=== PATIENT | female | born 1995 | race Caucasian/White ===

== ENCOUNTER 2019-04-19 02:12 | Emergency (ER) | payer OTHER ==
--- NOTE | 2019-04-19 02:23 | ED Physician Documentation ---
PD HPI ABD PAIN - Stated complaint Stated Complaint: ABD PX - Chief complaint Chief Complaint: Abd Pain - History obtained from History obtained from: Patient - History of Present Illness Timing - onset: Today (tonight) Timing - details: Abrupt onset Pain level now: 8 Quality: Cramping, Pain Location: Suprapubic Improved by: Other (sitting in a hot bath) Worsened by: Position, Palpation Associated symptoms: Nausea, Vomiting. No: Fever, Diarrhea, Constipation Similar symptoms before: Has not had sx before Recently seen: Not recently seen - Additional information Additional information: moved to [facility] last month. c/o severe period cramps, excessive bleeding (vaginal bleeding). symptoms started tonight. Review of Systems Constitutional: reports: Reviewed and negative Cardiac: reports: Reviewed and negative Respiratory: reports: Reviewed and negative GI: reports: Abdominal Pain, Nausea, Vomiting : reports: Vaginal bleeding. denies: Dysuria, Frequency, Now EGA PD PAST MEDICAL HISTORY - Past Medical History Past Medical History: No - Past Surgical History Past Surgical History: Yes - Present Medications Home Medications: Ambulatory Orders Medication Instructions Recorded Confirmed Ketorolac [Toradol] 10 mg PO Q6H PRN #14 tablet 04/19/19 Ondansetron Odt [Zofran] 4 mg TL Q6H PRN #10 tablet 04/19/19 - Allergies Allergies/Adverse Reactions: Allergies Allergy/AdvReac Type Severity Reaction Status Date / Time No Known Drug Allergies Allergy Verified 04/19/19 02:17 - Social History Does the pt smoke?: Yes Smoking Status: Current every day smoker Does the pt drink ETOH?: Yes Does the pt have substance abuse?: No - Immunizations Immunizations are current?: Yes - POLST Patient has POLST: No PD ED PE NORMAL - Vitals Vital signs reviewed: Yes - General General: Alert and oriented X 3, Well developed/nourished, Other (appears uncomfortable due to pain) - Cardiac Cardiac: RRR, No murmur - Respiratory Respiratory: No respiratory distress, Clear bilaterally - Abdomen Abdomen: Soft, Non tender, Non distended - Derm Derm: Normal color, Warm and dry Results - Vitals Vitals: Oxygen O2 Source Room air - Labs Labs: Laboratory Tests 04/19/19 04/19/19 03:15 03:15 WBC 5.5 RBC 4.41 Hgb 13.8 Hct 40.4 MCV 91.6 MCH 31.3 H MCHC 34.2 RDW 13.0 Plt Count 215 MPV 10.5 Neut # (Auto) 2.2 Lymph # (Auto) 2.4 Morris # (Auto) 0.3 Eos # (Auto) 0.5 Baso # (Auto) 0.1 Absolute Nucleated RBC 0.00 Nucleated RBC % 0.0 Sodium 144 Potassium 3.6 Chloride 109 Carbon Dioxide 25 Anion Gap 10.0 BUN 10 Creatinine 1.0 Estimated GFR (MDRD) 68 L Glucose 89 Calcium 8.4 L PD MEDICAL DECISION MAKING - ED course Complexity details: reviewed results, re-evaluated patient, considered differential, d/w patient ED course: asleep on reevaluations, reported improvement after IV zofran and Toradol. Departure - Departure Disposition: 01 Home, Self Care Clinical Impression: Pelvic pain Condition: Good Instructions: ED Pelvic Pain [facility] Follow-Up: [facility] [Provider Group] Prescriptions: Ketorolac [Toradol] 10 mg PO Q6H PRN #14 tablet PRN Reason: Pain Ondansetron Odt [Zofran] 4 mg TL Q6H PRN #10 tablet PRN Reason: Nausea / Vomiting Comments: Your IUD was removed tonight as per your request. You are no longer protected against because this was removed. Discharge Date/Time: 04/19/19 05:45
[2019-04-19] MEDS ORDERED: ONDANSETRON ODT 4 MG TABLET TL STA (03:08)
[2019-04-19] MEDS ORDERED: KETOROLAC 60 MG/2 ML VIAL IM STA (03:12)
[2019-04-19 03:23] LABS: BASOPHILS # (AUTO) 0.1 10^3/uL (0.0-0.1); BASOPHILS % (AUTO) 1.3 %; EOSINOPHILS # (AUTO) 0.5 10^3/uL (0.0-0.7); EOSINOPHILS % (AUTO) 8.2 %; HGB - HEMOGLOBIN 13.8 g/dL (12.0-16.0); LYMPHOCYTES # (AUTO) 2.4 10^3/uL (1.5-3.5); LYMPHOCYTES % (AUTO) 44.4 %; MEAN CORPUSCULAR HEMOGLOBIN 31.3 pg (27.0-31.0); MEAN CORPUSCULAR HGB CONC 34.2 g/dL (32.0-36.0); MEAN CORPUSCULAR VOLUME 91.6 fL (81.0-99.0); MEAN PLATELET VOLUME 10.5 fL (7.9-10.8); MONOCYTES # (AUTO) 0.3 10^3/uL (0.0-1.0); MONOCYTES % (AUTO) 5.8 %; NEUTROPHILS # (AUTO) 2.2 10^3/uL (1.5-6.6); NEUTROPHILS % (AUTO) 40.1 %; PLT - PLATELET COUNT 215 10^3/uL (130-450); RED BLOOD COUNT 4.41 10^6/uL (4.20-5.40); WHITE BLOOD COUNT 5.5 x10^3/uL (4.8-10.8)
[2019-04-19 03:29] LABS: CALCIUM 8.4 mg/dL (8.5-10.3)
--- NOTE | 2019-04-19 05:07 | Ultrasound Report ---
Reason: pelvic pain Procedure Date: 04/19/2019 Accession Number: [id number] / [id number] Procedure: US - Pelvic w/Transvag+Doppler Comp CPT Code: Final Report FULL RESULT: EXAM: PELVIC ULTRASOUND WITH DOPPLERS CLINICAL HISTORY: Pelvic pain. COMPARISON: None. TECHNIQUE: Realtime transabdominal imaging performed to identify the uterus and adnexa and as an overview of other pelvic structures, followed by transvaginal imaging for better assessment of the endometrium and adnexa, with static image documentation. Color flow imaging and Doppler spectral analysis was performed to evaluate blood flow to the ovaries given pelvic pain and clinical concern for ovarian torsion. FINDINGS: Uterus: 6.4 x 3.0 x 4.2 cm, volume 43 cc. Anteverted position. Normal overall size and echotexture. Masses: None. Endometrium: 2.2 mm. Normal. Cervix: Unremarkable. Right Ovary: 3.2 x 2.3 x 1.9 cm, volume 7.2 cc. Normal echotexture. Arterial and venous blood flow are present. PSV 9.1 cm/sec. RI 0.56. Left Ovary: 3.5 x 3.5 x 2.6 cm, volume 17.1 cc. Dominant follicle measuring 1.4 x 0.9 x 1.0 cm. Arterial and venous blood flow are present. PSV 15.2 cm/sec. RI 0.55. Free Fluid: Trace amount. Other: None. IMPRESSION: 1. Dominant follicle on the left ovary. 2. Arterial and venous blood flow are present to the ovaries bilaterally. 3. Trace amount of free fluid. RADIA
[2019-04-19 05:42] VITALS: BP 112/54
== END 2019-04-19 05:45 | disposition home or self-care (01) ==
LOC: ED 02:12
DX: R10.2 Pelvic and perineal pain (principal); R11.2 Nausea with vomiting, unspecified; Z30.432 Encounter for removal of intrauterine contraceptive device; F17.200 Nicotine dependence, unspecified, uncomplicated
CPT/HCPCS: 36415; 58301; 76830; 76856; 80048; 85025; 93975; 99284; Q0162